=== PATIENT | female | born 1990 | race Hispanic/Latino ===

== ENCOUNTER 2025-06-09 11:06 | Emergency (ER) | payer SELFPAY ==
[~2025-06-09] VITALS: Ht 157.5 cm; Wt 54.4 kg
[2025-06-09] MEDS ORDERED: ONDANSETRON HCL INJ 2MG/ML 2ML 2 MG/ML VIAL IV STA (11:15)
[2025-06-09 11:25] LABS: BASOPHILS % 0.3 % (0.0-1.0); EOSINOPHILS % 1.7 % (0.0-6.0); LYMPHOCYTES % 17.1 % (18.0-39.1); NEUTROPHILS % 74.4 % (38.7-80.0); RED CELL DISTRIBUTION WIDTH 15.4 % (11.7-14.4)
[2025-06-09 11:26] LABS: MONOCYTES % 6.2 % (4.4-11.3)
[2025-06-09] MEDS: SODIUM CHLORIDE 0.9% 1000ML 1,000 ML IV ONE (11:34)
[2025-06-09 11:54] LABS: EST GLOMERULAR FILTRATION RATE 118 ML/MIN (>=60)
[2025-06-09] MEDS ORDERED: SODIUM CHLORIDE 0.9% 250ML 250 ML ONE (14:56)
[2025-06-09 15:14] VITALS: PULSE 90; RESP 16; TEMP 99.5
[2025-06-09] MEDS: SODIUM CHLORIDE 0.9% 250ML 250 ML IV ONE (15:19)
[2025-06-09 16:24] VITALS: BP 112/75; PULSE 88; RESP 17; O2SAT 100
== END 2025-06-09 16:29 | disposition short-term general hospital (02) ==
LOC: ER 11:08
DX: R10.13 Epigastric pain (principal); O02.9 Abnormal product of conception, unspecified; D64.9 Anemia, unspecified; R11.0 Nausea; J44.9 Chronic obstructive pulmonary disease, unspecified
CPT/HCPCS: 36415; 76817; 80053; 83690; 84702; 85025; 86850; 86900; 86920; 93005; 93976; 99284; J7030; J7050; P9016; J2405